=== PATIENT | male | born 1995 | race Caucasian/White ===

== ENCOUNTER 2019-05-04 16:42 | Emergency (ER) | payer OTHER ==
[~2019-05-04] VITALS: Ht 177.8 cm; Wt 77.1 kg
[2019-05-04 17:10] VITALS: BP 114/62
--- NOTE | 2019-05-04 17:10 | NUR ---
PT AMBULATORY TO [facility].
--- NOTE | 2019-05-04 19:47 | NUR ---
PT AMBULATED TO [facility]IR A
--- NOTE | 2019-05-04 20:00 | NUR ---
PROVIDED PT WITH ICE PACK
== END 2019-05-04 20:24 | disposition home or self-care (01) ==
LOC: MED 16:42
DX: S60.221A Contusion of right hand, initial encounter (principal); V00.131A Fall from skateboard, initial encounter; Y93.89 Activity, other specified; Y92.89 Other specified places as the place of occurrence of the external cause; Y99.8 Other external cause status
CPT/HCPCS: 73130; 99283